=== PATIENT | male | born 1990 | race Caucasian/White ===

== ENCOUNTER 2018-04-26 17:07 | Emergency (ER) | payer SELFPAY ==
[2018-04-26] MEDS: KETOROLAC 30 MG/ML VIAL (J1885) IV (17:32)
[2018-04-26 18:05] LABS: ALBUMIN 3.8 GM/DL (3.2-5.2); ALBUMIN/GLOBULIN RATIO 1.19 (1.00-1.93); ALKALINE PHOSPHATASE 92 U/L (45-117); ALT/SGPT 28 U/L (12-78); ANION GAP 7 MEQ/L (8-16); AST/SGOT 13 U/L (7-37); BILIRUBIN,DIRECT 0.1 MG/DL (0.0-0.2); BILIRUBIN,TOTAL 0.3 MG/DL (0.2-1.0); BLOOD UREA NITROGEN 10 MG/DL (7-18); CARBON DIOXIDE LEVEL 26 MEQ/L (21-32); CHLORIDE LEVEL 109 MEQ/L (98-107); CREATININE FOR GFR 0.99 MG/DL (0.70-1.30); GLOMERULAR FILTRATION RATE > 60.0 (>60); GLUCOSE, FASTING 103 MG/DL (70-100); SODIUM LEVEL 142 MEQ/L (136-145)
[2018-04-26 18:33] LABS: D-DIMER QUANT < 270.0 ng/ml (<500)
== END 2018-04-26 18:44 | disposition home or self-care (01) ==
LOC: M ED 17:07
DX: R07.81 Pleurodynia (principal); R07.89 Other chest pain; R94.31 Abnormal electrocardiogram [ECG] [EKG]; F17.200 Nicotine dependence, unspecified, uncomplicated; Z87.81 Personal history of (healed) traumatic fracture
CPT/HCPCS: J1885

== ENCOUNTER 2018-04-28 13:14 | Emergency (ER) | payer SELFPAY ==
[2018-04-28] MEDS: KETOROLAC 30 MG/ML VIAL (J1885) IV (15:37)
[2018-04-28] MEDS: NS 1,000 ML IV (15:37)
[2018-04-28 15:49] LABS: BASO % 0.5 % (0.0-1.0); EOS # 0.1 10^3/uL (0.0-0.50); EOS % 1.9 % (0.0-3.0); HEMATOCRIT 48.1 % (42.0-52.0); HEMOGLOBIN 16.5 g/dl (13.5-17.5); IMMATURE GRANULOCYTE % 0.2 % (0-3.0); LYMPH # 1.6 10^3/uL (1.5-6.5); LYMPH % 27.2 % (24.0-44.0); MEAN CORPUSCULAR HEMOGLOBIN 29.4 pg (27.0-33.0); MEAN CORPUSCULAR HGB CONC 34.3 g/dl (32.0-36.5); MEAN CORPUSCULAR VOLUME 85.7 fl (80.0-96.0); MONO # 0.4 10^3/uL (0.0-0.8); MONO % 6.4 % (0.0-5.0); NEUTROPHILS # 3.7 10^3/uL (1.8-7.7); NEUTROPHILS % 63.8 % (36.0-66.0); PLATELET COUNT, AUTOMATED 302 10^3/uL (150-450); RED BLOOD COUNT 5.61 10^6/uL (4.30-6.10); RED CELL DISTRIBUTION WIDTH 11.9 % (11.5-14.5); WHITE BLOOD COUNT 5.8 10^3/uL (4.0-10.0)
[2018-04-28 16:12] LABS: ANION GAP 5 MEQ/L (8-16); BLOOD UREA NITROGEN 11 MG/DL (7-18); C REACTIVE PROTEIN QUANTITATIV < 0.30 MG/DL (0.00-0.30); CALCIUM LEVEL 9.7 MG/DL (8.5-10.1); CARBON DIOXIDE LEVEL 30 MEQ/L (21-32); CHLORIDE LEVEL 103 MEQ/L (98-107); CREATININE FOR GFR 0.97 MG/DL (0.70-1.30); GLOMERULAR FILTRATION RATE > 60.0 (>60); GLUCOSE, FASTING 65 MG/DL (70-100); SODIUM LEVEL 138 MEQ/L (136-145); TROPONIN I < 0.02 NG/ML (< 0.10)
[2018-04-28] MEDS ORDERED: ISOVUE-370 76% 100ML VIAL (Q9967) As Ordered (16:13)
[2018-04-28 18:09] LABS: ERYTHROCYTE SEDIMENTATION RATE 1 mm/hr (0-15)
== END 2018-04-28 17:16 | disposition home or self-care (01) ==
LOC: M ED 13:14
DX: R09.1 Pleurisy (principal); R00.1 Bradycardia, unspecified
CPT/HCPCS: Q9967

== ENCOUNTER 2018-05-19 20:54 | Emergency (ER) | payer SELFPAY ==
[2018-05-19] MEDS: OXYCODONE/APAP 5MG/325MG(BULK FOR ED) 1 TABLET PO (22:11)
[2018-05-19] MEDS: BACTRIM 160MG/800MG DS TAB PO (22:11)
[2018-05-19] MEDS: KETOROLAC 60 MG/2 ML VIAL (J1885) IM (22:11)
== END 2018-05-19 22:33 | disposition home or self-care (01) ==
LOC: M ED 20:54
DX: L03.113 Cellulitis of right upper limb (principal)
CPT/HCPCS: J1885

== ENCOUNTER 2018-08-19 23:50 | Inpatient (IN) | payer MEDICAID, SELFPAY ==
[~2018-08-19] VITALS: Ht 177.8 cm; Wt 74.3 kg
[~2018-08-19 23:50] MED LIST: BACT800T5 PO; IBUP-1114 PO; IBUP80TA PO; OXYC1TAB23 PO; PRED20TA PO
[2018-08-20 01:04] LABS: INFLUENZA A AMPLIFICATION NEGATIVE (NEGATIVE); INFLUENZA B AMPLIFICATION NEGATIVE (NEGATIVE)
[2018-08-20 01:25] LABS: BASO % 0.2 % (0.0-1.0); EOS # 0.9 10^3/uL (0.0-0.50); EOS % 6.7 % (0.0-3.0); HEMATOCRIT 41.1 % (42.0-52.0); HEMOGLOBIN 14.5 g/dl (13.5-17.5); LYMPH # 1.2 10^3/uL (1.5-6.5); LYMPH % 9.1 % (24.0-44.0); MEAN CORPUSCULAR HEMOGLOBIN 30.2 pg (27.0-33.0); MEAN CORPUSCULAR HGB CONC 35.3 g/dl (32.0-36.5); MEAN CORPUSCULAR VOLUME 85.6 fl (80.0-96.0); MONO # 0.8 10^3/uL (0.0-0.8); MONO % 5.9 % (0.0-5.0); NEUTROPHILS # 10.6 10^3/uL (1.8-7.7); NEUTROPHILS % 77.9 % (36.0-66.0); PLATELET COUNT, AUTOMATED 236 10^3/uL (150-450); WHITE BLOOD COUNT 13.6 10^3/uL (4.0-10.0)
[2018-08-20] MEDS ORDERED: KETOROLAC 30 MG/ML VIAL (J1885) IV ONE (01:30)
[2018-08-20] MEDS ORDERED: IPRATROPIUM 0.5MG/ALBUTEROL 2.5MG INH SOL UD 3ML (DUONEB)(J7620) NEB ONE (01:30)
[2018-08-20] MEDS ORDERED: NS 1,000 ML IV ONE ×3 (01:30→12:00)
[2018-08-20 01:33] LABS: BLOOD UREA NITROGEN 14 MG/DL (7-18); CALCIUM LEVEL 8.1 MG/DL (8.5-10.1); CARBON DIOXIDE LEVEL 24 MEQ/L (21-32); CHLORIDE LEVEL 108 MEQ/L (98-107); CREATININE FOR GFR 1.01 MG/DL (0.70-1.30); GLOMERULAR FILTRATION RATE > 60.0 (>60); GLUCOSE, FASTING 97 MG/DL (70-100); POTASSIUM SERUM 3.4 MEQ/L (3.5-5.1); SODIUM LEVEL 140 MEQ/L (136-145)
[2018-08-20] MEDS ORDERED: ISOVUE-370 76% 100ML VIAL (Q9967) As Ordered ONE (03:30)
[2018-08-20] MEDS ORDERED: METHOCARBAMOL 1,000 MG/10 ML VIAL (J2800) IV ONE (03:45)
[2018-08-20] MEDS ORDERED: LevoFLOXacin IV 750 MG in APPROPRIATE DILUENT 1 EA IV ONE (03:45)
[2018-08-20] MEDS ORDERED: IBUP40TA PO (05:13)
[2018-08-20] MEDS ORDERED: VANCOMYCIN HCL 1,000 MG, VIAL MATE ADAPTER 1 EACH in D5W 250 ML IV ONE ×2 (06:30→09:00)
--- NOTE | 2018-08-20 07:18 | HPEPDOC ---
[facility] Medical History & Physical Date of Admission Aug 20, 2018 Attending Physician: KYLEIGH LANCASTER MD History and Physical CHIEF COMPLAINT: Shortness of breath, cough, chest pain HISTORY OF PRESENT ILLNESS: Patient is a 28 year old male with no significant known past medical history who presented to the [facility] Emergency Department with complaint of shortness of breath, cough, and chest pain for 3 days duration. He states that a few days ago he developed a cough with shortness of breath. He also noticed chest pain and lower back pain at the time. He states that his cough is productive and he is able to bring up phlegm. He denies blood in his sputum although he says that he occasionally tastes blood when he coughs. He admits to discomfort and sharp pain when he takes a deep breath. He denies any recent weight loss. He admits to on and off fevers and chills. He states that the other night his had to help him change after he sweat through his clothes and his bed sheets. He denies any recent travel or sick contacts. He denies any contact with animals or pets. He is currently unemployed and denies any occupational exposure to chemicals. He denies any IV drug use. He is sexually active with one partner his . He denies any episode of shortness of breath like this before however, he does admit to episodes of chest pain with inspiration in the past. He states that over the past few days his shortness of breath and cough has been getting worse and worse which prompted him to come in for evaluation. In the Emergency department the patient received a chest x-ray and CT which dem onstrated difuse infiltrates and bilateral pleural effusions. He received one dose of levofloxacin and a Duoneb. Hospitalist service was consulted and the patient was admitted for further evaluation and management. PAST MEDICAL HISTORY: None PAST SURGICAL HISTORY: None SOCIAL HISTORY: Patient lives at home with his . He does smoke occasionally. He denies illicit or IV drug use. He denies any recent travel. He denies any sick contacts. He denies any pets or contact with animals. FAMILY HISTORY: Denies any history of lung disease in his family ALLERGIES: Please see below. REVIEW OF SYSTEMS: CONSTITUTIONAL: Admits to drenching night sweats, chills, and fevers. Denies unintentional weight loss or weight gain HEENT: Admits to cough and sputum production. Denies sore throat CARDIOVASCULAR: Admits to chest pain on right and left side. RESPIRATORY: Admits to shortness of breath and cough. Admits to wheezing. Admits to pain on deep inspiration. Denies blood in sputum but admits to taste of blood in mouth when coughing GASTROINTESTINAL: Denies abdominal pain but admits to pain on right upper quadrant by rib. Denies diarrhea or constipation GENITOURINARY: Denies dysuria or increased frequency SKIN: Denies rashes or lesions MUSCULOSKELETAL: Admits to lower back pain, right sided rib pain, and diffuse chest pain NEUROLOGICAL: Denies changes in speech or gait PSYCHIATRIC: Denies depression or anxiety ENDOCRINE: Denies heat intolerance or cold intolerance HEMATOLOGIC/LYMPHATIC: Denies easy bruising or bleeding HOME MEDICATIONS: Please see below. PHYSICAL EXAMINATION: VITAL SIGNS: Temperature 100.2, pulse 125, respiratory rate 18, blood pressure 125/73, pulse oximetry 96% 2L NC GENERAL APPEARANCE: Patient is awake alert and oriented. He is ill appearing but does not appear in acute distress. He is lying in bed. HEENT: Atruamatic, normocephalic. Eyes are non-icteric. Trachea is midline. Nares are patent. Dentition is fare. Mucous membranes are pink and moist CARDIOVASCULAR: Normal S1 and S2. tachycardiac on exam. Regular rhythm. Heart sounds slightly obscured by lung sounds. No clicks, rubs, or murmurs. LUNGS: Rhonchorous lung sounds through out. Decreased breath sounds throughout. Slight scattered wheezing. no accessory muscle use ABDOMEN: Soft, nondistended, nontender to palpation. Positive bowel sounds MUSCULOSKELETAL: Pain on palpation of Right ribs 5,6, and 7. No crepitus or bruising noted EXTREMITIES: No edema. Pulses are full and equal bilaterally NEUROLOGICAL: No focal neurological deficits PSYCHIATRIC: Mood and affect appear appropriate LABORATORY DATA: See below. IMAGING: CT angiography and Chest X-ray demonstrated diffuse infiltrated and bilateral pleural effusions MICROBIOLOGY: Please see below. ASSESSMENT and PLAN 1. Pneumonia -Patient has a Chest CT and X-ray demonstrating a significant diffuse pneumonia. He has received a dose of levofloxacin in the ER. Plan to continue empiric antibiotic treatment with Zosyn, Vancomycin, and Levofloxacin. Will deescalate as appropriate -Sputum culture pending -ABG pending -Will trend WBC -Pulmonary Medicine has been consulted and made aware of the case. Vital Signs Vital Signs Date Time Temp Pulse Resp B/P (MAP) Pulse Ox O2 Delivery O2 Flow Rate FiO2 08/20/18 06:38 Nasal Cannula 2.0 08/20/18 06:30 122/72 (89) 08/20/18 06:23 110 96 08/20/18 01:22 99.2 08/20/18 01:08 22 Laboratory Data Labs 24H Laboratory Tests 2 08/20/18 00:18: Immature Granulocyte % (Auto) 0.2, White Blood Count 13.6H, Red Blood Count 4.80, Hemoglobin 14.5, Hematocrit 41.1L, Mean Corpuscular Volume 85.6, Mean Corpuscular Hemoglobin 30.2, Mean Corpuscular Hemoglobin Concent 35.3, Red Cell Distribution Width 11.4L, Platelet Count 236, Neutrophils (%) (Auto) 77.9H, Lymphocytes (%) (Auto) 9.1L, Monocytes (%) (Auto) 5.9H, Eosinophils (%) (Auto) 6.7H, Basophils (%) (Auto) 0.2, Neutrophils # (Auto) 10.6H, Lymphocytes # (Auto) 1.2L, Monocytes # (Auto) 0.8, Eosinophils # (Auto) 0.9H, Basophils # (Auto) 0.0, Nucleated Red Blood Cells % (auto) 0.0, Anion Gap 8, Glomerular Filtration Rate > 60.0, Lactic Acid Level 0.9, Blood Urea Nitrogen 14, Creatinine 1.01, Sodium Level 140, Potassium Level 3.4L, Chloride Level 108H, Carbon Dioxide Level 24, Calcium Level 8.1L 08/20/18 00:28: Influenza Type A (RT-PCR) NEGATIVE, Influenza Type B (RT-PCR) NEGATIVE, Respiratory Syncytial Virus (RT-PCR NEGATIVE CBC/BMP Laboratory Tests 08/20/18 00:18 Red Blood Count 4.80, Mean Corpuscular Volume 85.6, Mean Corpuscular Hemoglobin 30.2, Mean Corpuscular Hemoglobin Concent 35.3, Red Cell Distribution Width 11.4 L, Neutrophils (%) (Auto) 77.9 H, Lymphocytes (%) (Auto) 9.1 L, Monocytes (%) (Auto) 5.9 H, Eosinophils (%) (Auto) 6.7 H, Basophils (%) (Auto) 0.2, Neutrophils # (Auto) 10.6 H, Lymphocytes # (Auto) 1.2 L, Monocytes # (Auto) 0.8, Eosinophils # (Auto) 0.9 H, Basophils # (Auto) 0.0, Calcium Level 8.1 L Microbiology Microbiology 08/20/18 Blood Culture, Received Pending Home Medications Scheduled PRN Ibuprofen (Ibuprofen) 400 Mg Tab, 400 MG PO Q6H PRN for PAIN Allergies Coded Allergies: No Known Allergies (Unverified , 04/26/18) GME ATTESTATION GME ATTESTATION My faculty preceptor for this patient encounter was physically present during the encounter and was fully available. All aspects of the patient interview, examination, medical decision making process, and medical care plan development were reviewed and approved by the faculty preceptor. The faculty preceptor is aware and concurs with the plan as stated in the body of this note and will attest to such by his/her cosignature. RANDOLPH CHRISTIANSON DO Aug 20, 2018 07:18 ROBERT RODRIGUEZ MD Aug 20, 2018 18:49
[2018-08-20] MEDS: ACETAMINOPHEN TAB 650MG DOSE (2X325MG) PO PRN ×3 (07:32→21:11)
[2018-08-20] MEDS: NS 1,000 ML IV SCH ×3 (07:33→23:05)
--- NOTE | 2018-08-20 08:20 | REP ---
PA and lateral chest wall, 01:33 a.m.: Comparison is 04/26/2018. There are diffuse bilateral interstitial and alveolar infiltrates. On the lateral view there are small bilateral pleural effusions. Cardiac size is normal. The gayle, mediastinum, skeletal structures are unremarkable. Electronically Signed by Mukund Kapadia MD 08/20/2018 08:11 A
--- NOTE | 2018-08-20 09:13 | PHACANCOPD ---
PHARMACY VANCOMYCIN DOSING Pt Demographics Demographics Patient Age:28 , Weight:100.000 , Gender: male Adjusted Body Weight Date: 08/20/18, Adjusted Body Weight: Kg Events Past 24 Hours Events Past 24 Hours: YES: Elevation in WBC, Pending Diagnostics Vancomycin Vancomycin indication: PNA Vancomycin Target Ranges: 15-20 mcg/ml Vancomycin Load Y/N: Yes Load Dose Date Time Vancomycin Load Dose: 2g Date: 08/20/18 Time: 0700 Vancomycin Dose Date: 08/20/18. Current Vancomycin Dose: [1500mg IV Q8H] Intermittent Dosing?: No Labs Labs Item Value Date Time White Blood Count 13.6 10^3/uL H 08/20/18 0018 Creatinine 1.01 MG/DL 08/20/18 0018 Blood Urea Nitrogen 14 MG/DL 08/20/18 0018 Micro Microbiology 08/20/18 Blood Culture, Received Pending 08/20/18 Blood Culture, Received Pending Creatinine Clearance Date:08/20/18. Est Creatinine Clearance: [~>100ml/min]. Pending Labs Vancomycin trough level scheduled 08/21/18 @1500 Assessment and Plan Maintaining Current Dose?: Yes Reason for dose change: No Dose Change Pharmacist Note Pharmacist Note Date: 08/20/18. Pharmacist note: Day #1 empiric vancomycin therapy initiated with a 2g loading dose, followed by a maintenance regimen of 1500mg IV Q8H for the treatment of pneumonia - aiming for a goal trough of 15-20mcg/ml. WBC is currently elevated and patient was febrile on admit. CXray today shows "diffuse bilateral interstitial and alveolar infiltrates." Blood and sputum cultures are pending. MRSA nasal screen is pending. No PMH of MRSA or vanco use here at [facility]. A vancomycin trough level has been scheduled to be drawn 08/21/18 @1500, prior to the 5th dose. We will continue to monitor and make dose adjustments if needed. RANDI THOMASON PHARMACY Aug 20, 2018 09:13
[2018-08-20] MEDS: ENOXAPARIN 40 MG/0.4 ML SYRINGE (J1650) SC SCH (09:22)
[2018-08-20] MEDS ORDERED: PIPERACILLIN/TAZOBACTAM SOD 4.5 GM in D5W MINI-BAG PLUS 50 ML IV SCH ×2 (10:00→18:00)
[2018-08-20] MEDS ORDERED: PIPERACILLIN/TAZOBACTAM SOD 4.5 GM in D5W MINI-BAG PLUS 50 ML IV ONE (10:30)
[2018-08-20] MEDS ORDERED: diphenhydrAMINE INJ 50MG/ML VIAL (J1200) IV ONE (12:00)
[2018-08-20] MEDS ORDERED: methylPREDNISolone INJ 125 MG/2 ML VIAL (J2930) IV ONE (12:00)
[2018-08-20] MEDS ORDERED: FAMOTIDINE IV BAG 20 MG in APPROPRIATE DILUENT 1 EA IV ONE (12:00)
--- NOTE | 2018-08-20 13:15 | REP ---
CT of the chest with IV contrast, CT pulmonary angiography protocol: There are no emboli in the pulmonary trunk or central pulmonary arteries. There are no emboli in the pulmonary lobe or segment branches. There are bilateral interstitial and alveolar infiltrates. There are small bilateral pleural effusions. The thoracic aorta is unremarkable. Cardiac size is normal. There is no pericardial effusion. The visualized upper abdominal contents are unremarkable. Impression: There are no pulmonary emboli. There are diffuse bilateral alveolar and interstitial infiltrates and small bilateral pleural effusions. Stat interpretation is given upon completion of study after-hours by James Osullivan MD. Electronically Signed by Mukund Kapadia MD 08/20/2018 01:07 P
[2018-08-20 14:45] VITALS: BP 128/64
[2018-08-20 14:50] LABS: ALBUMIN 3.2 GM/DL (3.2-5.2); ALT/SGPT 16 U/L (12-78); BILIRUBIN,DIRECT 0.2 MG/DL (0.0-0.2); BILIRUBIN,TOTAL 0.7 MG/DL (0.2-1.0)
[2018-08-20] MEDS ORDERED: VANCOMYCIN HCL 1,000 MG, VIAL MATE ADAPTER 1 EACH in D5W 250 ML IV SCH (16:00)
[2018-08-20 16:29] LABS: APPEARANCE, URINE CLEAR (CLEAR); BACTERIA, URINE AUTO 1+ (NEGATIVE); BILIRUBIN, URINE AUTO NEGATIVE (NEGATIVE); BLOOD, URINE BLOOD NEGATIVE (NEGATIVE); COLOR, URINE YELLOW (YELLOW); GLUCOSE, URINE (UA) AUTO NEGATIVE (NEGATIVE); KETONE, URINE AUTO 2+ mg/dL (NEGATIVE); LEUKOCYTE ESTERASE, URINE AUTO NEGATIVE (NEGATIVE); MUCUS, URINE SMALL (NEGATIVE); NITRITE, URINE AUTO NEGATIVE (NEGATIVE); PROTEIN, URINE AUTO NEGATIVE (NEGATIVE); RBC, URINE AUTO 0 /HPF (0-3); SPECIFIC GRAVITY URINE AUTO 1.035 (1.002-1.035); SQUAMOUS EPITHELIAL CELL UR AU 0 /HPF (0-6); WBC, URINE AUTO 3 /HPF (0-3)
[2018-08-20 16:47] LABS: AMPHETAMINES LEVEL URINE NEGATIVE (NEGATIVE); BARBITURATES URINE NEGATIVE (NEGATIVE); BENZODIAZEPINES URINE NEGATIVE (NEGATIVE); CANNABINOIDS URINE NEGATIVE (NEGATIVE); COCAINE METABOLITE URINE NEGATIVE (NEGATIVE); METHADONE URINE NEGATIVE (NEGATIVE); OPIATES URINE POSITIVE (NEGATIVE); PHENCYCLIDINE URINE NEGATIVE (NEGATIVE)
[2018-08-20] MEDS ORDERED: VANCOMYCIN HCL 500 MG in D5W MINI-BAG PLUS 100 ML IV SCH (17:00)
--- NOTE | 2018-08-20 17:44 | CR ---
DATE OF CONSULTATION: 08/20/2018 CHIEF COMPLAINT: Cough, shortness of breath, and chest pain. HISTORY OF PRESENT ILLNESS: Patient is a 28-year-old male with no significant medical history who presented with complaint of shortness of breath, cough, and chest pain for the past 3 days. Patient also reported some subjective fevers and chills as well. Patient has been noticing some chest pain more with coughing as well as lower back pain. He has a cough which is sometimes difficult to expectorate sputum, but he did notice some green sputum and denied any hemoptysis, however he did taste blood occasionally when he is coughing. Patient denies any recent travel or sick contacts. He is an occasional smoker of a few a cigarettes a week but denies any other inhalation use and any other illicit or IV drug use. Patient denies any previous history of any lung issues. No history of asthma, although he had noticed for the past few months some increasing shortness of breath and dyspnea on exertion. He has been using an albuterol inhaler that he had borrowed which occasionally does not always work, however when he is able to get the medication inhaled he does feel that there is some improvement in his breathing with the albuterol inhaler. In the emergency department (ED), patient was febrile as well as tachycardic and desaturating on room air. He was placed on nasal cannula oxygen supplementation and he received 3 liters of normal saline bolus in the ED as well as a DuoNeb treatment and antibiotics. Patient was given vancomycin and Zosyn for antibiotics as well as Levaquin. After the second dose of vancomycin, he started developing erythema in his upper chest as well as itchiness and numbness extending from his head down into his face and arms. He also felt that he had some face swelling noted at that time but denied any increasing shortness of breath. He had no lip or tongue swelling. No difficulty swallowing. PAST MEDICAL HISTORY: None. PAST SURGICAL HISTORY: None. SOCIAL HISTORY: Lives at home with his . Occasionally smokes cigarettes, a few a week. Denies any other illicit drug use or IV drug use. He denies any recent travel. No sick contacts. He denies any pets or contact with animals. He is currently unemployed by previously worked on [employer] in [place], last work was last fall when he lived in [place]. FAMILY HISTORY: No prior history of any lung disease. ALLERGIES: No known drug allergies. HOME MEDICATIONS: - ibuprofen as needed - as needed albuterol PHYSICAL EXAMINATION: Temperature 100.2, maximum temperature (T-max) 100.2, pulse 101, respiratory rate 20, blood pressure 138/65, oxygen saturation 98% on 2 liters nasal cannula. GENERAL: Patient is well nourished, well developed, is sitting in bed, appears to be uncomfortable, complaining of back pain, but does not appear to be in acute respiratory distress. Is able to speak in complete sentences and is not using any accessory muscles of respiration. HEENT: Normocephalic, atraumatic. Pupils are reactive. There appears to be some slight edema around his eyes. His trachea is midline. Neck is supple and there is no cervical adenopathy palpated. He does have a blanching, erythematous rash noted in his upper extremities in his neck and chest region. CARDIOVASCULAR: Tachycardic, normal S1, S2. No significant murmurs auscultated. LUNGS: He has rhonchorous breath sounds bilaterally with scattered crackles. ABDOMEN: Soft, nontender, nondistended. EXTREMITIES: No lower extremity edema noted. Pulses are equal and bilateral. LABORATORY DATA: WBC 13.6, hemoglobin 14.5, platelets 236. Chemistry: Sodium 140, potassium 3.4, chloride 108, bicarbonate 24, BUN 14, creatinine 1.01, glucose 97, lactate was 0.9. Influenza was negative. CT angiogram did not show any evidence of pulmonary embolism. There is some intralobular septal thickening more in the upper lobes. There are patchy alveolar and interstitial opacities bilaterally. Some component of ground glass opacity as well and some denser consolidations. There does not appear to be any upper or lower lung predominance and there is no peripheral zone predominance for these opacities as well. There are some small bilateral pleural effusions, do not appear loculated. There is no significant mediastinal or hilar adenopathy noted. ASSESSMENT AND PLAN: Patient is a 28-year-old male with no significant medical history who presented acutely with complaints of chest pain, cough, shortness of breath for the past few days as well as subjective fevers and chills. On arrival to the emergency department (ED), patient was febrile, he was also noted to have a leukocytosis and tachycardia. Patient likely with sepsis secondary to pneumonia given his radiographic findings. He was given 3 liters of normal saline in the ED and his lactate was normal on admission in the ED. CT chest was negative for any pulmonary embolism but did show patchy alveolar and interstitial infiltrates bilaterally with some ground glass component and some denser consolidations. There are also some small pleural effusions bilaterally and no significant adenopathy. Patient likely with severe community-acquired pneumonia. He has no risk factors for any resistant organisms at this time. He had a potential allergic reaction to the vancomycin. Will give a dose of Benadryl and Solu-Medrol and continue to monitor. Would discontinue vancomycin and check a methicillin-resistant Staphylococcus aureus (MRSA) nasal swab screen instead. Can continue with ceftriaxone with monitoring to see if he has any further reaction for a possible penicillin allergy, although patient reportedly has had penicillin antibiotics as an outpatient with no issues in the past. Can continue Levaquin for atypical coverage and for Pseudomonal coverage pending results of sputum culture. Would also check Legionella and Mycoplasma. Would also continue with DuoNebs. Continue with nasal cannula oxygen supplementation as well to maintain oxygen saturation above 90%. If patient does not have any improvement, can consider steroids for severe community-acquired pneumonia. Will followup with an HIV test. Continue with deep venous thrombosis (DVT) prophylaxis. MTDD
[2018-08-20] MEDS: cefTRIAXone SOD 1 GM in D5W MINI-BAG PLUS 50 ML IV SCH (18:11)
[2018-08-20 22:00] VITALS: BP 135/73
[2018-08-20] MEDS: NICOTINE 14 MG/24 HR TRANSDERMAL TD SCH (23:04)
[2018-08-21] MEDS: LevoFLOXacin IV 750 MG in APPROPRIATE DILUENT 1 EA IV SCH (04:13)
[2018-08-21] MEDS: cefTRIAXone SOD 1 GM in D5W MINI-BAG PLUS 50 ML IV SCH ×2 (05:59→18:27)
[2018-08-21 06:00] VITALS: BP 115/96
[2018-08-21 07:09] LABS: BASO % 0.2 % (0.0-1.0); EOS # 1.3 10^3/uL (0.0-0.50); EOS % 9.1 % (0.0-3.0); HEMOGLOBIN 13.8 g/dl (13.5-17.5); LYMPH # 1.6 10^3/uL (1.5-6.5); LYMPH % 11.1 % (24.0-44.0); MEAN CORPUSCULAR HGB CONC 35.4 g/dl (32.0-36.5); MEAN CORPUSCULAR VOLUME 84.8 fl (80.0-96.0); MONO # 0.6 10^3/uL (0.0-0.8); MONO % 4.2 % (0.0-5.0); NEUTROPHILS # 10.9 10^3/uL (1.8-7.7); NEUTROPHILS % 74.7 % (36.0-66.0); PLATELET COUNT, AUTOMATED 256 10^3/uL (150-450); WHITE BLOOD COUNT 14.7 10^3/uL (4.0-10.0)
[2018-08-21 07:39] LABS: BLOOD UREA NITROGEN 10 MG/DL (7-18); CALCIUM LEVEL 7.7 MG/DL (8.5-10.1); CARBON DIOXIDE LEVEL 24 MEQ/L (21-32); CHLORIDE LEVEL 110 MEQ/L (98-107); CREATININE FOR GFR 0.82 MG/DL (0.70-1.30); GLOMERULAR FILTRATION RATE > 60.0 (>60); GLUCOSE, FASTING 111 MG/DL (70-100); POTASSIUM SERUM 3.3 MEQ/L (3.5-5.1); SODIUM LEVEL 142 MEQ/L (136-145)
[2018-08-21] MEDS ORDERED: POTASSIUM CHLORIDE 10 MEQ SR TABLET PO ONE (09:00)
[2018-08-21 09:30] VITALS: BP 129/74
[2018-08-21 10:16] LABS: C REACTIVE PROTEIN QUANTITATIV 9.48 MG/DL (0.00-0.30)
[2018-08-21] MEDS: ENOXAPARIN 40 MG/0.4 ML SYRINGE (J1650) SC SCH (11:01)
[2018-08-21 11:28] LABS: LDH LACTATE DEHYDROGENASE 155 U/L (87-241)
[2018-08-21] MEDS: NS 1,000 ML IV SCH ×2 (12:04→20:06)
[2018-08-21 12:58] LABS: HIV 1&2 SCREEN CENTAUR NEGATIVE (NEGATIVE)
[2018-08-21 14:42] VITALS: BP 124/81
--- NOTE | 2018-08-21 15:40 | IPNPDOC ---
Subjective Date Seen The patient was seen on 08/21/18. Subjective Chief Complaint/HPI Patient seen and examined at the bedside. Reports that his respiratory status is slightly better this morning. However, overall the patient continues to complain of cough, congestion, and shortness of breath. He has remained afebrile overnight. He has been started on scheduled IV steroids for severe community acquired pneumonia by pulmonary. Objective Physical Examination General Exam: Positive: Alert, Cooperative, Mild Distress (secondary to cough, shortness of breath) ENT Exam: Positive: Atraumatic, Mucous membr. moist/pink Chest Exam: Positive: Rhonchi, Diminished Heart Exam: Positive: Rate Normal, Normal S1, Normal S2 Abdomen Exam: Positive: Soft; Negative: Tenderness Extremity Exam: Negative: Tenderness, Swelling Psych Exam: Positive: Oriented x 3 Assessment /Plan Plan/VTE VTE Prophylaxis Ordered?: Yes Plan Severe Community Acquired PNA CTA Chest negative for PE, however notable for diffuse bilateral alveolar and interstitial infiltrates Respiratory panel negative HIV-negative, Atypical pneumonia workup ordered Pulmonary on board Continue Rocephin and Levaquin. IV Solu-Medrol and serial nebulizer therapy added We will continue to monitor the patient's respiratory status and down titrate supplemental oxygen as tolerated Physical therapy ordered for functional optimization Illicit drug use Patient denies any history of drug use, however noted to be positive for opiates on urine tox screen He has not been administered any opioid medications here DVT prophylaxis Lovenox subcutaneous VS, I&O, 24H, Fishbone Vital Signs/I&O Vital Signs Date Time Temp Pulse Resp B/P (MAP) Pulse Ox O2 Delivery O2 Flow Rate FiO2 08/21/18 14:42 98.2 97 19 124/81 (95) 95 1.5 08/20/18 13:56 Nasal Cannula I&O- Last 24 Hours up to 6 AM 08/21/18 06:00 Intake Total 3320 ml Output Total 2350 ml Balance 970 ml Laboratory Data 24H LABS Laboratory Tests 2 08/20/18 16:05: Urine Appearance CLEAR, Urine Color YELLOW, Urine pH 5.0, Urine Specific [place] 1.035, Urine Protein NEGATIVE, Urine Glucose (UA) NEGATIVE, Urine Ketones 2+H, Urine Urobilinogen 2.0H, Urine Bilirubin NEGATIVE, Urine Leukocyte Esterase NEGATIVE, Urine Blood NEGATIVE, Urine Nitrite NEGATIVE, Urine WBC (Auto) 3, Urine RBC (Auto) 0, Urine Hyaline Casts (Auto) 0, Urine Bacteria (Auto) 1+H, Urine Squamous Epithelial Cells 0, Urine Mucus (Auto) SMALL, Urine Sperm (Auto) , Urine Amphetamines Screen NEGATIVE, Urine Benzodiazepines Screen NEGATIVE, Urine Opiates Screen POSITIVEH, Urine Methadone Screen NEGATIVE, Urine Barbiturates Screen NEGATIVE, Urine Phencyclidine Screen NEGATIVE, Urine Cocaine Metabolite Screen NEGATIVE, Urine Cannabinoids Screen NEGATIVE 08/21/18 06:37: Immature Granulocyte % (Auto) 0.7, White Blood Count 14.7H, Red Blood Count 4.60, Hemoglobin 13.8, Hematocrit 39.0L, Mean Corpuscular Volume 84.8, Mean Sara uscular Hemoglobin 30.0, Mean Corpuscular Hemoglobin Concent 35.4, Red Cell Distribution Width 11.3L, Platelet Count 256, Neutrophils (%) (Auto) 74.7H, Lymphocytes (%) (Auto) 11.1L, Monocytes (%) (Auto) 4.2, Eosinophils (%) (Auto) 9.1H, Basophils (%) (Auto) 0.2, Neutrophils # (Auto) 10.9H, Lymphocytes # (Auto) 1.6, Monocytes # (Auto) 0.6, Eosinophils # (Auto) 1.3H, Basophils # (Auto) 0.0, Nucleated Red Blood Cells % (auto) 0.0, Anion Gap 8, Glomerular Filtration Rate > 60.0, Blood Urea Nitrogen 10, Creatinine 0.82, Sodium Level 142, Potassium Level 3.3L, Chloride Level 110H, Carbon Dioxide Level 24, Calcium Level 7.7L, Lactate Dehydrogenase 155, C-Reactive Protein, Quantitative 9.48H 08/21/18 15:31: CBC/BMP Laboratory Tests 08/21/18 06:37 Red Blood Count 4.60, Mean Corpuscular Volume 84.8, Mean Corpuscular Hemoglobin 30.0, Mean Corpuscular Hemoglobin Concent 35.4, Red Cell Distribution Width 11.3 L, Neutrophils (%) (Auto) 74.7 H, Lymphocytes (%) (Auto) 11.1 L, Monocytes (%) (Auto) 4.2, Eosinophils (%) (Auto) 9.1 H, Basophils (%) (Auto) 0.2, Neutrophils # (Auto) 10.9 H, Lymphocytes # (Auto) 1.6, Monocytes # (Auto) 0.6, Eosinophils # (Auto) 1.3 H, Basophils # (Auto) 0.0, Calcium Level 7.7 L Microbiology Microbiology 08/20/18 Blood Culture - Preliminary, Resulted No growth after 24 hours . All specim... 08/20/18 Blood Culture - Preliminary, Resulted No growth after 24 hours . All specim... 08/20/18 Respiratory Virus Panel (PCR) (JING) - Final, Complete 08/20/18 MRSA Screen, Received Pending 08/20/18 Gram Stain - Final, Resulted 08/20/18 Sputum Culture, Resulted Pending 08/20/18 Mycoplasma pneumoniae Culture, Received Pending KYLEIGH LANCASTER MD Aug 21, 2018 15:40
[2018-08-21] MEDS ORDERED: IPRATROPIUM 0.5MG/ALBUTEROL 2.5MG INH SOL UD 3ML (DUONEB)(J7620) NEB PRN (15:45)
[2018-08-21] MEDS: methylPREDNISolone INJ 125 MG/2 ML VIAL (J2930) IV SCH ×2 (15:56→23:35)
[2018-08-21 18:00] VITALS: BP 132/81
[2018-08-21] MEDS: IPRATROPIUM 0.5MG/ALBUTEROL 2.5MG INH SOL UD 3ML (DUONEB)(J7620) NEB SCH (18:33)
[2018-08-21] MEDS: NICOTINE 14 MG/24 HR TRANSDERMAL TD SCH (20:06)
[2018-08-21 22:00] VITALS: BP 143/69
[2018-08-22] MEDS: IPRATROPIUM 0.5MG/ALBUTEROL 2.5MG INH SOL UD 3ML (DUONEB)(J7620) NEB SCH ×4 (01:43→20:51)
[2018-08-22] MEDS: LevoFLOXacin IV 750 MG in APPROPRIATE DILUENT 1 EA IV SCH (04:21)
[2018-08-22] MEDS: cefTRIAXone SOD 1 GM in D5W MINI-BAG PLUS 50 ML IV SCH ×2 (05:54→17:03)
[2018-08-22] MEDS: NS 1,000 ML IV SCH (05:54)
[2018-08-22 06:00] VITALS: BP 138/88
[2018-08-22 06:42] LABS: BASO % 0.3 % (0.0-1.0); EOS # 0.5 10^3/uL (0.0-0.50); EOS % 4.4 % (0.0-3.0); HEMATOCRIT 41.6 % (42.0-52.0); HEMOGLOBIN 14.5 g/dl (13.5-17.5); LYMPH # 1.4 10^3/uL (1.5-6.5); LYMPH % 12.3 % (24.0-44.0); MEAN CORPUSCULAR HEMOGLOBIN 29.5 pg (27.0-33.0); MEAN CORPUSCULAR HGB CONC 34.9 g/dl (32.0-36.5); MEAN CORPUSCULAR VOLUME 84.6 fl (80.0-96.0); MONO # 0.2 10^3/uL (0.0-0.8); MONO % 1.9 % (0.0-5.0); NEUTROPHILS # 9.1 10^3/uL (1.8-7.7); NEUTROPHILS % 79.6 % (36.0-66.0); PLATELET COUNT, AUTOMATED 291 10^3/uL (150-450); RED BLOOD COUNT 4.92 10^6/uL (4.30-6.10); WHITE BLOOD COUNT 11.5 10^3/uL (4.0-10.0)
[2018-08-22 07:11] LABS: BLOOD UREA NITROGEN 10 MG/DL (7-18); C REACTIVE PROTEIN QUANTITATIV 4.81 MG/DL (0.00-0.30); CALCIUM LEVEL 8.2 MG/DL (8.5-10.1); CARBON DIOXIDE LEVEL 25 MEQ/L (21-32); CHLORIDE LEVEL 108 MEQ/L (98-107); CREATININE FOR GFR 0.85 MG/DL (0.70-1.30); GLOMERULAR FILTRATION RATE > 60.0 (>60); GLUCOSE, FASTING 135 MG/DL (70-100); POTASSIUM SERUM 4.2 MEQ/L (3.5-5.1); SODIUM LEVEL 140 MEQ/L (136-145)
[2018-08-22 09:15] VITALS: BP 136/83
[2018-08-22] MEDS: methylPREDNISolone INJ 125 MG/2 ML VIAL (J2930) IV SCH ×2 (09:17→16:00)
[2018-08-22] MEDS: ENOXAPARIN 40 MG/0.4 ML SYRINGE (J1650) SC SCH (11:06)
--- NOTE | 2018-08-22 11:57 | REP ---
Chest two views HISTORY: Pneumonia Comparison: 08/20/2018 The lungs are clear. The heart is normal in size. The pulmonary vasculature is normal in appearance. The bony structure is intact. IMPRESSION: No acute disease. There has been resolution of the previously noted bilateral infiltrates. Electronically Signed by Eric Rosales MD 08/22/2018 11:49 A
--- NOTE | 2018-08-22 12:03 | IPN ---
DATE: 08/22/2018 The patient was seen and examined this morning. He reports his breathing has significantly improved. He does not have as much shortness of breath. He was able to ambulate around the unit a few laps. His cough has also improved. He does occasionally have a cough but it is not as frequent and it is nonproductive. He had no fevers overnight. His chest pain has also improved. He has reported some diarrhea. He had two loose bowel movements yesterday evening and another episode of yellow loose stool this morning. He denies any abdominal pain. No nausea or vomiting. PHYSICAL EXAMINATION: Temperature 97.6, pulse 89, respirations 20, blood pressure 130/88, oxygen saturation 95% on room air. General: The patient is well-nourished, well-developed. Is sitting in the chair in apparent distress. Is speaking in complete sentences and not using any accessory muscles for respiration. HEENT: Normocephalic, atraumatic. Pupils are reactive. Moist mucous membranes. Neck is supple. Trachea is midline. No palpable cervical adenopathy. Cardiovascular: Regular rate and rhythm. Normal S1, S2. No murmurs auscultated. Lungs: Improved breath sounds bilaterally posteriorly. There are some occasional rhonchi and crackles but much improved from previous. There is no wheezing noted. Abdomen is soft, nontender, nondistended. There is no lower extremity edema bilaterally. LABORATORY DATA: WBC 11.5, hemoglobin 14.5, platelets 291. Eosinophils trending down 4.4 from 9.1. Chemistry: Sodium 140, potassium 4.2, chloride 108, bicarbonate 25, BUN 10, creatinine 0.85, glucose 135. CRP trending down to 4.81. There was no imaging for today. ASSESSMENT AND PLAN: The patient is a 28-year-old male with no significant medical history, who presented with complaints of shortness of breath and cough. The patient was febrile on admission and also noted to have leukocytosis. The patient was suspected to have sepsis, possibly secondary to pneumonia given his imaging findings. The patient had a CT chest on admission, which showed patchy alveolar interstitial infiltrates bilaterally with some ground-glass component and some denser consolidations as well as small pleural effusions bilaterally. The patient was started on antibiotics for presumed community-acquired pneumonia. Of note, his eosinophil count which was elevated increased yesterday. 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 Acute eosinophilic pneumonia does not generally cause any peripheral eosinophilia that is more commonly seen in a chronic eosinophilic pneumonia. He denied having any new exposures to any toxins or fumes recently. He has recently started smoking however. On admission, he had reported smoking a few cigarettes a day. Previously, he had been doing chewing tobacco and in the past 2 weeks he has started smoking cigarettes to try to come off of the chewing tobacco. His other exposures he has had exposures in the past when he worked in [employer] but this was in April. Hypersensitivity pneumonitis is a possibility as it can sometimes be associated with eosinophilia. However, on his CT he does not have any clear upper lung zone predominance and he does not have significant peripheral zone predominance, which you would expect in the chronic eosinophilic pneumonia. The patient denies any history of asthma, which would be more suspected in a diagnosis of Churg-Efraín. However, we did send off testing for strongyloides, ANCA for vasculitis and hypersensitivity pneumonitis panel. The patient is also pending the results of testing for atypical pneumonia such as Legionella and Mycoplasma. He was started on Solu-Medrol yesterday given the concern for an eosinophilic lung disease, and he has had significant improvement in his symptoms with the Solu-Medrol. Will repeat a chest x-ray today to see if there is resolution of his previously noted opacities. If there is significant improvement it would suggest more of an eosinophilic lung disease rather than a pneumonia. However, will continue with antibiotics at this time and continue with Solu-Medrol. He will likely need a longer tapering course of prednisone as an outpatient. HIV test was negative and his LDH was not elevated, which goes against the diagnosis of an opportunistic infection such as PCP. The patient's oxygen saturations have improved. He was off of nasal cannula oxygen yesterday for most of the day. This morning he is off of nasal cannula again and saturating 95% on room air. Deep venous thrombosis (DVT) prophylaxis.
[2018-08-22] MEDS: LACTOBACILLUS ACIDOPHILUS CAP (BACID) PO SCH (13:02)
--- NOTE | 2018-08-22 13:59 | IPNPDOC ---
Subjective Date Seen The patient was seen on 08/22/18. Subjective Chief Complaint/HPI Patient seen and examined at the bedside. Reports that he is feeling significantly better this morning. Denies any overnight fevers, chills and notes that his cough is improving. He reports that he was able to walk 2 laps in the hallway, and states that his respiratory status is getting back to normal. Objective Physical Examination General Exam: Positive: Alert, Cooperative, No Acute Distress ENT Exam: Positive: Atraumatic, Mucous membr. moist/pink Chest Exam: Positive: Clear to auscultation, Normal air movement Heart Exam: Positive: Rate Normal, Normal S1, Normal S2 Abdomen Exam: Positive: Soft; Negative: Tenderness Extremity Exam: Negative: Tenderness, Swelling Psych Exam: Positive: Oriented x 3 Assessment /Plan Plan/VTE VTE Prophylaxis Ordered?: Yes Plan Severe Community Acquired PNA vs Eosinophilic PNA CTA Chest negative for PE, however notable for diffuse bilateral alveolar and interstitial infiltrates Respiratory panel negative HIV-negative, Atypical pneumonia workup unrevealing thus far, Autoimmune work up also pending The patient's respiratory status is significantly improved this AM after he was started on IV Steroids yesterday. He was noted to be ambulating in the hallway without any acute complaints. Repeat CXR today also reveals resolution of bilateral infiltrates Will discuss possibly discontinuing antibiotics and discharging the patient home on a tapering dose of steroids in the next 24 hrs with Pulmonary Pulmonary on board Illicit drug use Patient denies any history of drug use, however noted to be positive for opiates on urine tox screen He has not been administered any opioid medications here DVT prophylaxis Lovenox subcutaneous Disposition--anticipate discharge in the next 24-48 hours pending continued clinical improvement. VS, I&O, 24H, Fishbone Vital Signs/I&O Vital Signs Date Time Temp Pulse Resp B/P (MAP) Pulse Ox O2 Delivery O2 Flow Rate FiO2 08/22/18 09:15 97.8 110 19 136/83 (100) 94 08/21/18 21:00 2.0 08/20/18 13:56 Nasal Cannula I&O- Last 24 Hours up to 6 AM 08/22/18 06:00 Intake Total 3290 ml Output Total 1275 ml Balance 2015 ml Laboratory Data 24H LABS Laboratory Tests 2 08/21/18 15:31: 08/22/18 05:57: Immature Granulocyte % (Auto) 1.5, White Blood Count 11.5H, Red Blood Count 4.92, Hemoglobin 14.5, Hematocrit 41.6L, Mean Corpuscular Volume 84.6, Mean Corpuscular Hemoglobin 29.5, Mean Corpuscular Hemoglobin Concent 34.9, Red Cell Distribution Width 11.3L, Platelet Count 291, Neutrophils (%) (Auto) 79.6H, Lymphocytes (%) (Auto) 12.3L, Monocytes (%) (Auto) 1.9, Eosinophils (%) (Auto) 4.4H, Basophils (%) (Auto) 0.3, Neutrophils # (Auto) 9.1H, Lymphocytes # (Auto) 1.4L, Monocytes # (Auto) 0.2, Eosinophils # (Auto) 0.5, Basophils # (Auto) 0.0, Nucleated Red Blood Cells % (auto) 0.0, Anion Gap 7L, Glomerular Filtration Rate > 60.0, Blood Urea Nitrogen 10, Creatinine 0.85, Sodium Level 140, Potassium Level 4.2#, Chloride Level 108H, Carbon Dioxide Level 25, Calcium Level 8.2L, C- Reactive Protein, Quantitative 4.81H CBC/BMP Laboratory Tests 08/22/18 05:57 Red Blood Count 4.92, Mean Corpuscular Volume 84.6, Mean Corpuscular Hemoglobin 29.5, Mean Corpuscular Hemoglobin Concent 34.9, Red Cell Distribution Width 11.3 L, Neutrophils (%) (Auto) 79.6 H, Lymphocytes (%) (Auto) 12.3 L, Monocytes (%) (Auto) 1.9, Eosinophils (%) (Auto) 4.4 H, Basophils (%) (Auto) 0.3, Neutrophils # (Auto) 9.1 H, Lymphocytes # (Auto) 1.4 L, Monocytes # (Auto) 0.2, Eosinophils # (Auto) 0.5, Basophils # (Auto) 0.0, Calcium Level 8.2 L Microbiology Microbiology 08/20/18 Blood Culture - Preliminary, Resulted No Growth after 48 hours. All Specime... 08/20/18 Blood Culture - Preliminary, Resulted No Growth after 48 hours. All Specime... 08/20/18 Respiratory Virus Panel (PCR) ([facility]) - Final, Complete 08/20/18 MRSA Screen - Final, Complete 08/20/18 Gram Stain - Final, Complete 08/20/18 Sputum Culture - Final, Complete 08/20/18 Mycoplasma pneumoniae Culture, Received Pending KYLEIGH LANCASTER MD Aug 22, 2018 13:59
[2018-08-22 14:00] VITALS: BP 137/63
[2018-08-22] MEDS: NICOTINE 14 MG/24 HR TRANSDERMAL TD SCH (20:11)
--- NOTE | 2018-08-22 20:23 | IPN ---
DATE: 08/21/2018 The patient was seen and examined this morning. He was seen off on nasal cannula oxygen as he had complained of some nasal irritation and some blood in his nasal discharge when he blew his nose. Off of oxygen he was satting 93% on room air. He does not appear to be in any acute respiratory distress. He is speaking in complete sentences, is not using accessory muscles of respiration. He continues to report significant pain with coughing. He denies any improvement in his cough, is still occasionally productive, has not noticed any hemoptysis. He did not have any fevers overnight. PHYSICAL EXAMINATION: Temperature 98.3, pulse 85, respirations 20, blood pressure 115/96, O2 sat 93% on room air. General: The patient is well developed, well nourished is sitting in bed, is complaining of pain but does not appear to be in respiratory distress. Is not using any accessory muscles of respiration. HEENT: Normocephalic, atraumatic. Pupils are reactive. There is no rash noted in his neck or upper chest region today . Cardiovascular: Regular rate and rhythm. Normal S1-S2. No significant murmurs. Lungs: He continues to have rhonchorous breath sounds and crackles bilaterally. There is no wheezing noted. Abdomen: Soft, nontender, nondistended. Extremities: No lower extremity edema noted. LABORATORY DATA: WBC 14.7, hemoglobin 13.8, platelets 256. Chemistry: Sodium 142, potassium 3.3, chloride 110, bicarb 24, BUN 10, creatinine 0.82, glucose 111. LDH is 155, CRP 9.48. Serology : Negative HIV, negative Influenza. Cultures: Final cultures are still pending. Blood cultures have no growth to date. Respiratory: Virus panel was negative. ASSESSMENT/PLAN: The patient is a 28-year-old male with no significant medical history presented with complaints of chest pain, cough and shortness of breath for the past few days as well as subjective fevers and chills. In the ED the patient was febrile, was tachycardic and had a leukocytosis. He had sepsis, likely secondary to pneumonia given his CT findings. On CT, the patient had diffuse bilateral alveolar and interstitial opacities. There is also a small bilateral pleural effusions noted. Patient likely with a severe community acquired pneumonia. He has no risk factors for any resistant organisms. No history of any immunocompromised state. His HIV test was negative. His LDH was normal, which makes an opportunistic fungal infection like PCP less likely. The patient had possible allergic reaction to vancomycin so it was discontinued yesterday and given that he had is from home and no other risk factors for resistant organisms he was changed to ceftriaxone with Levaquin which will cover for atypical including Legionella and possible pseudomonal coverage. The patient's sputum cultures are still pending. His Legionella and Mycoplasma is also pending. The patient appears to be satting 93% on room air, is not needing any nasal cannula supplementation at this time. He still has a white count but he has been afebrile overnight. Will continue with antibiotics and follow up the sensitivities. The patient will likely need a 7-10 days course of antibiotics and repeat imaging to follow up resolution on the CT. Continue with DVT prophylaxis. The patient's CBC today continues to show some eosinophilia which has increased actually since his presentation. Therefore, given the eosinophilia will also check strongyloides and ANCA for possible Churg-Efraín although he denies a history of asthma and has no evidence of renal involvement. Acute eosinophilic pneumonia usually does not cause any serum eosinophilia it is more likely to cause eosinophilia in bronchoalveolar lavage fluid. Chronic eosinophilic pneumonia can cause peripheral eosinophilia however given the CT findings it is not classical but still possible. Certain medications and other inhalations eosinophilic lung disease and the patient did have a toxicology screen which was positive for opioids and he had previously denied any other illicit substances. Will also check for coccidiomycosis. ABPA looks less likely based on the CT findings and no history of asthma. Given the concern for possible eosinophilic lung disease will start the patient on Solu-Medrol MTDD
[2018-08-22 22:00] VITALS: BP 124/68
[2018-08-23] MEDS: methylPREDNISolone INJ 125 MG/2 ML VIAL (J2930) IV SCH ×2 (00:05→09:25)
[2018-08-23] MEDS: IPRATROPIUM 0.5MG/ALBUTEROL 2.5MG INH SOL UD 3ML (DUONEB)(J7620) NEB SCH ×2 (02:00→09:09)
[2018-08-23] MEDS: LevoFLOXacin IV 750 MG in APPROPRIATE DILUENT 1 EA IV SCH (04:46)
[2018-08-23 06:00] VITALS: BP 127/79
[2018-08-23 06:19] LABS: BASO # 0.1 10^3/uL (0.0-0.2); BASO % 0.6 % (0.0-1.0); EOS # 1.9 10^3/uL (0.0-0.50); EOS % 14.3 % (0.0-3.0); HEMATOCRIT 39.2 % (42.0-52.0); HEMOGLOBIN 13.5 g/dl (13.5-17.5); LYMPH # 1.8 10^3/uL (1.5-6.5); LYMPH % 13.4 % (24.0-44.0); MEAN CORPUSCULAR HEMOGLOBIN 29.7 pg (27.0-33.0); MEAN CORPUSCULAR HGB CONC 34.4 g/dl (32.0-36.5); MEAN CORPUSCULAR VOLUME 86.3 fl (80.0-96.0); MONO # 0.4 10^3/uL (0.0-0.8); MONO % 2.6 % (0.0-5.0); NEUTROPHILS # 8.9 10^3/uL (1.8-7.7); NEUTROPHILS % 67.4 % (36.0-66.0); PLATELET COUNT, AUTOMATED 282 10^3/uL (150-450); RED BLOOD COUNT 4.54 10^6/uL (4.30-6.10); WHITE BLOOD COUNT 13.2 10^3/uL (4.0-10.0)
[2018-08-23] MEDS: cefTRIAXone SOD 1 GM in D5W MINI-BAG PLUS 50 ML IV SCH (06:24)
[2018-08-23 06:43] LABS: BLOOD UREA NITROGEN 15 MG/DL (7-18); CALCIUM LEVEL 8.1 MG/DL (8.5-10.1); CARBON DIOXIDE LEVEL 28 MEQ/L (21-32); CHLORIDE LEVEL 108 MEQ/L (98-107); CREATININE FOR GFR 0.96 MG/DL (0.70-1.30); GLOMERULAR FILTRATION RATE > 60.0 (>60); GLUCOSE, FASTING 152 MG/DL (70-100); POTASSIUM SERUM 4.1 MEQ/L (3.5-5.1); SODIUM LEVEL 140 MEQ/L (136-145)
[2018-08-23] MEDS: ENOXAPARIN 40 MG/0.4 ML SYRINGE (J1650) SC SCH (09:00)
[2018-08-23] MEDS: LACTOBACILLUS ACIDOPHILUS CAP (BACID) PO SCH (09:26)
[2018-08-23 09:56] LABS: C REACTIVE PROTEIN QUANTITATIV 2.35 MG/DL (0.00-0.30)
--- NOTE | 2018-08-23 11:13 | IPN ---
DATE: 08/23/2018 PULMONARY PROGRESS NOTE: Patient was seen and examined this morning. Patient reports his breathing has significantly improved at this time and he denies any increased shortness of breath. No chest pain. His cough has also significantly improved as well. He has no fevers, no chills. He has been on room air and he has an saturating well. PHYSICAL EXAMINATION: Temperature 97.4, pulse 86, respirations 18, blood pressure 127/79, oxygen saturation 97% on room air. General: Patient is well-nourished, well-developed, is lying in bed, in no apparent distress. Is speaking in complete sentences and not using any accessory muscles for respiration. HEENT: Normocephalic, atraumatic. Pupils are reactive. Moist mucous membranes. Neck is supple. Trachea is midline. Cardiovascular: Regular rate and rhythm. Normal S1, S2. No murmurs auscultated. Lungs: Improved breath sounds bilaterally. There is no rhonchi or wheezing. No crackles. Abdomen is soft, nontender, nondistended. Extremities: There is no lower extremity edema noted bilaterally. LABORATORY DATA: WBC 13.2, hemoglobin 13.5, platelets 282, eosinophils 14.3% with an absolute count 1.9. Chemistry: Sodium is 140, potassium is 4.1, chloride is 108, bicarbonate is 28, BUN is 15, creatinine is 0.96 and glucose is 152. His UA was negative for protein. Chest x-ray yesterday showed resolution of the previously noted patchy opacities bilaterally. There is likely still small trace pleural effusion as he still has blunting in the costophrenic angle but looks improved. ASSESSMENT AND PLAN: Patient is a 28-year-old male with no significant medical history, who presented with complaints of shortness breath and cough. Patient was febrile on admission and noted have leukocytosis. He is suspected to have sepsis, possibly secondary to pneumonia given his imaging findings. Patient had a CT chest on admission, which showed patchy alveolar interstitial infiltrates bilaterally with some ground-glass and more solid components as well as small pleural effusions bilaterally. There was no significant adenopathy noted. He was started on antibiotics for presumed community-acquired pneumonia. Of note, his eosinophil count have been increasing on his complete blood count (CBC). Therefore, given the concern for an eosinophilic lung disease, he was started on steroids yesterday with Solu-Medrol. With the steroids his repeat chest x-ray showed resolution of his previously noted interstitial infiltrates and still some trace pleural effusions bilaterally. His eosinophil count today is continued to be elevated despite being on Solu-Medrol. In terms of the differential, an acute eosinophilic pneumonia does not generally cause any peripheral eosinophilia; that is more commonly seen with chronic eosinophilic pneumonia. The imaging pattern is not clearly suggestive of a chronic eosinophilic pneumonia as it is not upper lobe or peripheral predominant. EGPA or Churg Efraín is in the differential although he denies any prior history of asthma. He had noted however some increasing shortness of breath in the past few months with occasional wheezing and he has a previous history of nose bleeds and some sinus symptoms. EGPA then is possible, however, he does not appear to have any other organ involvement at this time. His UA was negative and his creatinine is normal. Chronic eosinophilic pneumonia may still be in differential as he has reported previously working at [employer] and his pulmonary symptoms appear to potentially have been going on for the past few months. Hypersensitivity pneumonitis is still on the differential and can occasionally be associated with eosinophilia. However, given the significant eosinophil count a hypereosinophilia syndrome with pulmonary involvement is also possible. He does report a history of some enlarged lymph nodes in the past. Therefore, would refer patient to Hem/Onc for evaluation for hypereosinophilia syndrome and malignancy work-up. His ANCA are still pending. His strongyloides panel, his hypersensitivity panel which includes Aspergillus is still pending and coccidiomycosis also pending. Would change his Solu-Medrol to prednisone 40 mg daily for 2 weeks and then he will need a slow taper. At that time, we should have some of his lab work back, which may help differentiate the type of eosinophilic lung disease he has. He should also followup with pulmonary upon discharge and with Hem/Onc. In terms of infection, pneumonia is less likely given the rapid resolution on imaging, however, would continue with doxycycline to complete a 5-day course for potential infectious etiology. Will still followup his Legionella and Mycoplasma. The patient is saturating well off of nasal cannula oxygen. Planned for discharge later today with appropriate outpatient followup. Deep venous thrombosis (DVT) prophylaxis. FULL CODE. MTDD
[2018-08-23] MEDS ORDERED: PRED20TA PO (11:54)
[2018-08-23] MEDS ORDERED: DOXY-350 PO (11:54)
--- NOTE | 2018-08-23 16:13 | DS.PDOC ---
Discharge Summary General Date of Admission Aug 20, 2018 at 06:16 Date of Discharge 08/23/18 Specialist/Consultants Involve Dr. Palomo of Pulmonary Discharge Summary PROCEDURES PERFORMED DURING STAY: None. ADMITTING/DISCHARGE DIAGNOSES: Severe Community Acquired PNA vs Eosinophilic PNA Possible Illicit Drug Use COMPLICATIONS/CHIEF COMPLAINT: Pnemonia. HISTORY OF PRESENT ILLNESS: . 28-year-old male with no significant past medical history presented to the ER with a chief complaint of worsening shortness of breath, cough, and chest pain several days duration. The patient states that he has noted chest pain and worsening shortness of breath over several weeks, but this did culminate over the last several days. He also expressed symptoms of cough productive of yellowish sputum, subjective fevers/chills, and generalized fatigue. In the ER, patient was noted to have diffuse infiltrates and bilateral pleural effusions on CT scan of the chest. He was admitted to the hospitalist service for further evaluation. During hospitalization, the patient was started on IV antibiotics for community- acquired pneumonia and IV steroids for possible eosinophilic pneumonia based on the patient's elevated lymphocytes on CBC differential. A pulmonary consultation was ordered, and it has been recommended that the patient continue on prednisone 40 mg for the next 2 weeks and then taper from there. Also, the patient has been counseled to follow-up with hematology/oncology as an outpatient for aforementioned lymphocytosis. At this time, the patient states that he is feeling much better and is eager to return home. A follow-up chest x-ray revealed resolution of the aforementioned findings. I have instructed the patient to follow-up with his primary care physician within 7 days and complete an antibiotic course as ordered. We will provide the patient with 2 weeks of steroids, he will have to follow-up with his primary care physician and/or pulmonary for further titration of his steroids from there. He will also need to follow-up for atypical pneumonia workup as ordered, which is currently pending at this time. Lastly the patient has been instructed to return to the ER for any acute emergency. The aforementioned instructions and the need to follow-up her extensively discussed with the patient and his at the bedside, and they have verbalized understanding of the same. All questions were answered to their satisfaction. DISCHARGE MEDICATIONS: Please see below. ALLERGIES: Please see below. PHYSICAL EXAMINATION ON DISCHARGE: VITAL SIGNS: Please see below. General Exam: Positive: Alert, Cooperative, No Acute Distress ENT Exam: Positive: Atraumatic, Mucous membr. moist/pink Chest Exam: Positive: Clear to auscultation, Normal air movement Heart Exam: Positive: Rate Normal, Normal S1, Normal S2 Abdomen Exam: Positive: Soft; Negative: Tenderness Extremity Exam: Negative: Tenderness, Swelling Psych Exam: Positive: Oriented x 3 LABORATORY DATA: Please see below. IMAGING: PA and lateral chest wall, 01:33 a.m.: Comparison is 04/26/2018. There are diffuse bilateral interstitial and alveolar infiltrates. On the lateral view there are small bilateral pleural effusions. Cardiac size is normal. The gayle, mediastinum, skeletal structures are unremarkable. CT of the chest with IV contrast, CT pulmonary angiography protocol: There are no emboli in the pulmonary trunk or central pulmonary arteries. There are no emboli in the pulmonary lobe or segment branches. There are bilateral interstitial and alveolar infiltrates. There are small bilateral pleural effusions. The thoracic aorta is unremarkable. Cardiac size is normal. There is no pericardial effusion. The visualized upper abdominal contents are unremarkable. Impression: There are no pulmonary emboli. There are diffuse bilateral alveolar and interstitial infiltrates and small bilateral pleural effusions. Chest two views HISTORY: Pneumonia Comparison: 08/20/2018 The lungs are clear. The heart is normal in size. The pulmonary vasculature is normal in appearance. The bony structure is intact. IMPRESSION: No acute disease. There has been resolution of the previously no viak bilateral infiltrates. PROGNOSIS: Fair ACTIVITY: As tolerated. DIET: Regular DISCHARGE PLAN: DISPOSITION: 01 Home, Self-Care. DISCHARGE INSTRUCTIONS: I have instructed the patient to follow-up with his primary care physician within 7 days and complete an antibiotic course as ordered. We will provide the patient with 2 weeks of steroids, he will have to follow-up with his primary care physician and/or pulmonary for further titration of his steroids from there. He will also need to follow-up for atypical pneumonia workup as ordered, which is currently pending at this time. Lastly the patient has been instructed to return to the ER for any acute emergency. DISCHARGE CONDITION: Stable. TIME SPENT ON DISCHARGE: Greater than 30 minutes. Vital Signs/I&Os Vital Signs Date Time Temp Pulse Resp B/P (MAP) Pulse Ox O2 Delivery O2 Flow Rate FiO2 08/23/18 06:00 97.4 66 18 127/79 (95) 97 08/21/18 21:00 2.0 08/20/18 13:56 Nasal Cannula I&O- Last 24 Hours up to 6 AM 08/23/18 06:00 Intake Total 3920 ml Balance 3920 ml Laboratory Data Labs 24H Laboratory Tests 2 08/23/18 06:00: Immature Granulocyte % (Auto) 1.7, White Blood Count 13.2H, Red Blood Count 4.54, Hemoglobin 13.5, Hematocrit 39.2L, Mean Corpuscular Volume 86.3, Mean Corpuscular Hemoglobin 29.7, Mean Corpuscular Hemoglobin Concent 34.4, Red Cell Distribution Width 11.4L, Platelet Count 282, Neutrophils (%) (Auto) 67.4H, Lymphocytes (%) (Auto) 13.4L, Monocytes (%) (Auto) 2.6, Eosinophils (%) (Auto) 14.3H, Basophils (%) (Auto) 0.6, Neutrophils # (Auto) 8.9H, Lymphocytes # (Auto) 1.8, Monocytes # (Auto) 0.4, Eosinophils # (Auto) 1.9H, Basophils # (Auto) 0.1, Nucleated Red Blood Cells % (auto) 0.0, Anion Gap 4L, Glomerular Filtration Rate > 60.0, Blood Urea Nitrogen 15, Creatinine 0.96, Sodium Level 140, Potassium Level 4.1, Chloride Level 108H, Carbon Dioxide Level 28, Calcium Level 8.1L, C- Reactive Protein, Quantitative 2.35H CBC/BMP Laboratory Tests 08/23/18 06:00 Red Blood Count 4.54, Mean Corpuscular Volume 86.3, Mean Corpuscular Hemoglobin 29.7, Mean Corpuscular Hemoglobin Concent 34.4, Red Cell Distribution Width 11.4 L, Neutrophils (%) (Auto) 67.4 H, Lymphocytes (%) (Auto) 13.4 L, Monocytes (%) (Auto) 2.6, Eosinophils (%) (Auto) 14.3 H, Basophils (%) (Auto) 0.6, Neutrophils # (Auto) 8.9 H, Lymphocytes # (Auto) 1.8, Monocytes # (Auto) 0.4, Eosinophils # (Auto) 1.9 H, Basophils # (Auto) 0.1, Calcium Level 8.1 L Microbiology Microbiology 08/20/18 Blood Culture - Preliminary, Resulted No Growth after 72 hours. All specime... 08/20/18 Blood Culture - Preliminary, Resulted No Growth after 72 hours. All specime... 08/20/18 Respiratory Virus Panel (PCR) ([facility]) - Final, Complete 08/20/18 MRSA Screen - Final, Complete 08/20/18 Gram Stain - Final, Complete 08/20/18 Sputum Culture - Final, Complete 08/20/18 Mycoplasma pneumoniae Culture, Received Pending Discharge Medications Scheduled Doxycycline Hyclate (Doxycycline) 100 Mg Cap, 1 CAP PO BID Prednisone (Prednisone) 20 Mg Tab, 2 TAB PO DAILY Scheduled PRN Ibuprofen (Ibuprofen) 400 Mg Tab, 400 MG PO Q6H PRN for PAIN, (Reported) Allergies Coded Allergies: No Known Allergies (Unverified , 04/26/18) KYLEIGH LANCASTER MD Aug 23, 2018 16:13
== END 2018-08-23 13:35 | disposition home or self-care (01) | DRG 720 ==
LOC: M ED 23:50 → M ED INP 08-20 06:16 → M PED 08-20 14:45 → M MS5PR 08-20 18:33
PROVIDERS: ADMIT Hospitalist; ATTEND Internal Medicine
DX: A41.9 Sepsis, unspecified organism (principal); J82 Pulmonary eosinophilia, not elsewhere classified; J18.9 Pneumonia, unspecified organism; F17.210 Nicotine dependence, cigarettes, uncomplicated

== ENCOUNTER 2018-08-24 16:36 | Emergency (ER) | payer MEDICAID ==
[~2018-08-24] VITALS: Ht 177.8 cm; Wt 74.6 kg
[~2018-08-24 16:36] MED LIST changes: +DOXY-350 PO; +IBUP40TA PO
[2018-08-24 16:37] VITALS: BP 130/73
== END 2018-08-24 17:45 | disposition left against medical advice (07) ==
LOC: M ED 16:36
DX: Z53.21 Procedure and treatment not carried out due to patient leaving prior to being seen by health care provider (principal)

== ENCOUNTER → 2018-09-05 | Outpatient (CLI) | payer MEDICAID ==
--- NOTE | 2018-09-05 12:40 | REP ---
LEFT UPPER EXTREMITY DUPLEX DOPPLER VENOUS ULTRASOUND: Real-time compression and duplex Doppler interrogation of the left upper extremity venous system is performed. Left jugular, subclavian and axillary and brachial veins demonstrate no evidence of intraluminal thrombus, fully compressible, with no evidence of deep vein thrombosis. There is, however, thrombus in the peripheral portions of the left cephalic vein extending into the antecubital fossa, with a central aspect of the thrombus at the level of the upper humerus. IMPRESSION: No deep vein thrombosis left upper extremity. There is, however, thrombus in the peripheral portions of the left cephalic vein. Electronically Signed by Mukund Garcia MD 09/06/2018 10:11 A
== END ==
LOC: M RAD 11:25
PROVIDERS: ATTEND Internal Medicine Pulmonary Disease
DX: I82.612 Acute embolism and thrombosis of superficial veins of left upper extremity (principal)

== ENCOUNTER → 2018-09-05 | Outpatient (CLI) | payer MEDICAID ==
[2018-09-05 14:14] LABS: BASO # 0.1 10^3/uL (0.0-0.2); BASO % 0.9 % (0.0-1.0); EOS # 1.2 10^3/uL (0.0-0.50); EOS % 14.9 % (0.0-3.0); HEMATOCRIT 46.9 % (42.0-52.0); HEMOGLOBIN 15.6 g/dl (13.5-17.5); LYMPH # 1.3 10^3/uL (1.5-6.5); LYMPH % 15.5 % (24.0-44.0); MEAN CORPUSCULAR HEMOGLOBIN 29.5 pg (27.0-33.0); MEAN CORPUSCULAR HGB CONC 33.3 g/dl (32.0-36.5); MEAN CORPUSCULAR VOLUME 88.7 fl (80.0-96.0); MONO # 0.3 10^3/uL (0.0-0.8); MONO % 3.2 % (0.0-5.0); NEUTROPHILS # 5.2 10^3/uL (1.8-7.7); NEUTROPHILS % 65.1 % (36.0-66.0); PLATELET COUNT, AUTOMATED 322 10^3/uL (150-450); RED BLOOD COUNT 5.29 10^6/uL (4.30-6.10); WHITE BLOOD COUNT 8.1 10^3/uL (4.0-10.0)
[2018-09-05 15:06] LABS: ALBUMIN 4.1 GM/DL (3.2-5.2); ALT/SGPT 82 U/L (12-78); BILIRUBIN,DIRECT 0.1 MG/DL (0.0-0.2); BILIRUBIN,TOTAL 0.5 MG/DL (0.2-1.0); BLOOD UREA NITROGEN 17 MG/DL (7-18); CALCIUM LEVEL 9.1 MG/DL (8.5-10.1); CARBON DIOXIDE LEVEL 30 MEQ/L (21-32); CHLORIDE LEVEL 104 MEQ/L (98-107); CHOLESTEROL LEVEL 183 MG/DL (<200); CREATININE FOR GFR 1.13 MG/DL (0.70-1.30); FREE THYROXINE INDEX 2.7 % (1.4-3.8); GLOMERULAR FILTRATION RATE > 60.0 (>60); GLUCOSE, FASTING 119 MG/DL (70-100); HDL CHOLESTEROL 50 MG/DL (>40); LDL CHOLESTEROL 120 MG/DL (<100); NON-HDL-C 133 MG/DL; SODIUM LEVEL 141 MEQ/L (136-145); T UPTAKE 39 % (33-40); THYROID STIMULATING HORMONE 0.894 uIU/ML (0.358-3.740); TOTAL PROTEIN 7.3 GM/DL (6.4-8.2); TRIGLYCERIDES LEVEL 64 MG/DL (<150)
[2018-09-08 00:07] LABS: STRONGYLOIDES SERUM ANTIBODIES Negative (Negative); VITAMIN D 1,25 DIHYDROXY 31.9 pg/mL (19.9-79.3)
== END ==
LOC: M SMT 10:15
PROVIDERS: ATTEND Internal Medicine Pulmonary Disease
DX: J18.9 Pneumonia, unspecified organism (principal)

== ENCOUNTER → 2018-09-12 | Outpatient (CLI) | payer MEDICAID, OTHER ==
--- NOTE | 2018-09-14 16:08 | ECHO ---
DATE OF PROCEDURE: 09/12/2018 REFERRING PHYSICIAN: Dr. Kellee Palomo INDICATION: Chest pain. HEIGHT: 70 inches. WEIGHT: 153 pounds. 2D MEASUREMENTS: Aortic root: 2.7 cm Left atrium: 3.0 cm Proximal ascending aorta: 2.3 cm Ventricular septum: 0.94 cm Posterior wall: 0.92 cm Left ventricle diastole: 4.5 cm Aortic annulus: 2.3 cm Inferior vena cava: 2.0 cm DOPPLER MEASUREMENTS: Aortic valve velocity: 103 cm/s LVOT velocity: 76.9 cm/s Very mild mitral regurgitation. Mitral E velocity: 77.1 cm/s Mitral A velocity: 58.2 cm/s Mitral deceleration time: 222 ms Very mild tricuspid regurgitation. Estimated right ventricle systolic pressure: 22-27 mmHg assuming a right pressure of 5-10 mmHg. Pulmonary acceleration time: 173 ms MITRAL ANNULAR TISSUE DOPPLER: E prime septal: 9.9 cm/s E prime lateral: 14.4 cm/s DESCRIPTION: Rhythm was sinus. Image quality was good. This was a 2D, M-mode, color flow Doppler and pulse wave Doppler examination and included mitral annular tissue Doppler. CONCLUSIONS: 1. Normal left ventricle internal dimensions and wall thickness. Normal regional left ventricular (LV) wall motion and wall thickening. Normal LV systolic function. Left ventricular ejection fraction (LVEF) 60% by visual estimate. Normal LV systolic function. 2. Tiny pericardial effusion seen over the posterior wall of the left ventricle. No diastolic chamber collapse. 3. Otherwise normal echocardiogram Doppler findings.
== END ==
LOC: M CARPUL 10:26
PROVIDERS: ATTEND Internal Medicine Pulmonary Disease
DX: I31.3 Pericardial effusion (noninflammatory) (principal)

== ENCOUNTER → 2018-10-05 | Outpatient (CLI) | payer OTHER ==
[2018-10-05 19:40] LABS: BASO # 0.1 10^3/uL (0.0-0.2); BASO % 0.8 % (0.0-1.0); EOS # 0.3 10^3/uL (0.0-0.50); EOS % 5.2 % (0.0-3.0); HEMATOCRIT 44.9 % (42.0-52.0); HEMOGLOBIN 15.4 g/dl (13.5-17.5); LYMPH # 1.9 10^3/uL (1.5-6.5); LYMPH % 30.6 % (24.0-44.0); MEAN CORPUSCULAR HEMOGLOBIN 29.9 pg (27.0-33.0); MEAN CORPUSCULAR HGB CONC 34.3 g/dl (32.0-36.5); MEAN CORPUSCULAR VOLUME 87.2 fl (80.0-96.0); MONO # 0.3 10^3/uL (0.0-0.8); MONO % 5.5 % (0.0-5.0); NEUTROPHILS # 3.6 10^3/uL (1.8-7.7); NEUTROPHILS % 57.7 % (36.0-66.0); PLATELET COUNT, AUTOMATED 286 10^3/uL (150-450); RED BLOOD COUNT 5.15 10^6/uL (4.30-6.10); WHITE BLOOD COUNT 6.2 10^3/uL (4.0-10.0)
[2018-10-05 19:51] LABS: IMMUNOGLOBULIN E 76.6 IU/ML (<100); IMMUNOGLOBULIN M 38.1 MG/DL (40-230)
[2018-10-17 08:06] LABS: D001-IgE D pteronyssinus 1.23 kU/L (Class II); E001-IgE Cat Epith/Dander < 0.10 kU/L (Class 0); E005-IgE Dog Dander < 0.10 kU/L (Class 0); G002-IgE Bermuda Grass < 0.10 kU/L (Class 0); G008-IgE Kentucky Bluegrass < 0.10 kU/L (Class 0); M001-IgE Penicillium chrysogen < 0.10 kU/L (Class 0); M002 IgE Cladosporium herbaru < 0.10 kU/L (Class 0); M003 IgE Aspergillus fumigatu < 0.10 kU/L (Class 0); M006-IgE Alternaria alternata < 0.10 kU/L (Class 0); T001-IgE Maple/Box Elder < 0.10 kU/L (Class 0); T003-IgE Common Silver Birch < 0.10 kU/L (Class 0); T006-IgE Cedar, Mountain < 0.10 kU/L (Class 0); T007-IgE Oak, White < 0.10 kU/L (Class 0); T008-IgE Elm, American < 0.10 kU/L (Class 0); T015-IgE Ash, White < 0.10 kU/L (Class 0); T041-IgE Hickory, White < 0.10 kU/L (Class 0); T070-IgE White Mulberry < 0.10 kU/L (Class 0); TRYPTASE 2.2 ug/L (2.2-13.2); W001-IgE Ragweed, Short < 0.10 kU/L (Class 0); W009-IgE Plantain, English < 0.10 kU/L (Class 0); W014-IgE Pigweed, Rough < 0.10 kU/L (Class 0); W018-IgE Sheep Sorrel < 0.10 kU/L (Class 0)
== END ==
LOC: M SMT 15:59
PROVIDERS: ATTEND Internal Medicine Pulmonary Disease
DX: D72.1 Eosinophilia (principal); J45.40 Moderate persistent asthma, uncomplicated

== ENCOUNTER 2023-02-18 04:23 | Emergency (ER) | payer SELFPAY ==
[~2023-02-18 04:23] MED LIST changes: -DOXY-350 PO; +DOXY-444 PO; +IBUP1TAB5 PO; -IBUP40TA PO
[2023-02-18 05:20] LABS: BASO # 0.1 10^3/uL (0.0-0.2); BASO % 1.1 % (0.0-1.0); EOS # 0.3 10^3/uL (0.0-0.5); EOS % 6.3 % (0.0-3.0); HEMATOCRIT 44.5 % (42.0-52.0); HEMOGLOBIN 15.7 g/dl (13.5-17.5); LYMPH # 2.1 10^3/uL (1.5-5.0); LYMPH % 39.4 % (24.0-44.0); MEAN CORPUSCULAR HEMOGLOBIN 30.3 pg (27.0-33.0); MEAN CORPUSCULAR HGB CONC 35.3 g/dl (32.0-36.5); MEAN CORPUSCULAR VOLUME 85.7 fl (80.0-96.0); MONO # 0.4 10^3/uL (0.0-0.8); MONO % 8.1 % (2.0-8.0); NEUTROPHILS # 2.4 10^3/uL (1.5-8.5); NEUTROPHILS % 44.7 % (36.0-66.0); PLATELET COUNT, AUTOMATED 249 10^3/uL (150-450); RED BLOOD COUNT 5.19 10^6/uL (4.30-6.10); WHITE BLOOD COUNT 5.4 10^3/uL (4.0-10.0)
[2023-02-18 05:53] LABS: BLOOD UREA NITROGEN 15 MG/DL (9-23); CALCIUM LEVEL 9.2 MG/DL (8.5-10.1); CARBON DIOXIDE LEVEL 26 MMOL/L (20-31); CHLORIDE LEVEL 105 MMOL/L (98-107); CK-MB VALUE MASS < 1.0 NG/ML (<3.6); CREATININE FOR GFR 1.19 MG/DL (0.70-1.30); GLOMERULAR FILTRATION RATE > 60.0 (>60); GLUCOSE, FASTING 91 MG/DL (60-100); POTASSIUM SERUM 3.8 MMOL/L (3.5-5.1); SODIUM LEVEL 138 MMOL/L (136-145)
[2023-02-18 06:00] LABS: CPK CREATINE PHOSPHOKINASE 99 U/L (46-171); MB/CK RELATIVE INDEX 1.01 (< OR =4)
[2023-02-18 06:56] LABS: CK-MB VALUE MASS < 1.0 NG/ML (<3.6)
[2023-02-18] MEDS ORDERED: ACETAMINOPHEN TAB 650MG DOSE (2X325MG) PO ONE (07:25)
[2023-02-18] MEDS ORDERED: KETOROLAC 30 MG/ML 1ML VIAL IV ONE (07:25)
[2023-02-18] MEDS ORDERED: LIDOCAINE 5% (LIDODERM) PATCH TD ONE (07:25)
[2023-02-18 07:32] LABS: CPK CREATINE PHOSPHOKINASE 96 U/L (46-171); MB/CK RELATIVE INDEX 1.04 (< OR =4)
[2023-02-18] MEDS ORDERED: ASPE4PAD TOP (09:08)
[2023-02-18] MEDS ORDERED: KETO10TAB PO (09:08)
[2023-02-18 09:24] VITALS: BP 111/63; TEMP 98; O2SAT 98
== END 2023-02-18 09:26 | disposition home or self-care (01) ==
LOC: M ED 04:23
DX: M54.6 Pain in thoracic spine (principal); F32.A Depression, unspecified; Z88.0 Allergy status to penicillin; Z88.1 Allergy status to other antibiotic agents; Z79.899 Other long term (current) drug therapy
CPT/HCPCS: 71045; 80048; 82550; 82553; 84484; 85025; 93005; 93041; 96374; 99284; J1885

== ENCOUNTER 2023-04-19 19:21 | Emergency (ER) | payer SELFPAY ==
[~2023-04-19] VITALS: Ht 177.8 cm; Wt 84.5 kg
[2023-04-19 19:21] VITALS: BP 130/81; TEMP 97.8; O2SAT 98
[~2023-04-19 19:21] MED LIST changes: +ASPE4PAD TOP; +KETO10TAB PO
[2023-04-19] MEDS ORDERED: CELE40TA PO (19:34)
[2023-04-19] MEDS ORDERED: ZYPR5TAB2 PO (19:34)
[2023-04-19 20:06] LABS: BASO # 0.1 10^3/uL (0.0-0.2); BASO % 0.9 % (0.0-1.0); EOS # 0.2 10^3/uL (0.0-0.5); EOS % 2.9 % (0.0-3.0); HEMOGLOBIN 17.2 g/dl (13.5-17.5); LYMPH # 2.2 10^3/uL (1.5-5.0); LYMPH % 26.5 % (24.0-44.0); MEAN CORPUSCULAR HGB CONC 35.1 g/dl (32.0-36.5); MEAN CORPUSCULAR VOLUME 85.4 fl (80.0-96.0); MONO # 0.4 10^3/uL (0.0-0.8); MONO % 5.4 % (2.0-8.0); NEUTROPHILS # 5.3 10^3/uL (1.5-8.5); NEUTROPHILS % 64.1 % (36.0-66.0); PLATELET COUNT, AUTOMATED 312 10^3/uL (150-450); RED BLOOD COUNT 5.74 10^6/uL (4.30-6.10); WHITE BLOOD COUNT 8.2 10^3/uL (4.0-10.0)
[2023-04-19 20:29] LABS: LIPASE 22 U/L (12-53)
[2023-04-19 20:31] LABS: ALBUMIN 4.5 G/DL (3.2-5.2); ALKALINE PHOSPHATASE 77 U/L (46-116); ALT/SGPT 56 U/L (7.0-40); AST/SGOT 21 U/L (<34); BILIRUBIN,DIRECT 0.3 MG/DL (<0.4); BILIRUBIN,TOTAL 0.7 MG/DL (0.3-1.2); BLOOD UREA NITROGEN 16 MG/DL (9-23); CALCIUM LEVEL 9.8 MG/DL (8.5-10.1); CARBON DIOXIDE LEVEL 26 MMOL/L (20-31); CHLORIDE LEVEL 105 MMOL/L (98-107); CREATININE FOR GFR 1.09 MG/DL (0.70-1.30); GLOMERULAR FILTRATION RATE > 60.0 (>60); GLUCOSE, FASTING 92 MG/DL (60-100); POTASSIUM SERUM 4.5 MMOL/L (3.5-5.1); SODIUM LEVEL 139 MMOL/L (136-145)
== END 2023-04-19 21:17 | disposition left against medical advice (07) ==
LOC: M ED 19:21
DX: Z53.21 Procedure and treatment not carried out due to patient leaving prior to being seen by health care provider (principal)